=== PATIENT | female | born 1950 | race Caucasian/White ===

== ENCOUNTER 2016-06-11 08:45 | Day surgery (SDC) | payer MEDICARE, BC ==
[~2016-06-11 08:45] MED LIST: Lactated Ringers 1,000 ML IV SCH; Sodium Chloride 0.9% 10 ML Syringe FLUSH PRN
--- NOTE | 2016-06-11 09:48 | PCM.HPR ---
H & P Addendum review - H & P Addendum Review Date of Original H & P: 05/29/16 Date Reviewed: 06/11/16 Time Reviewed: 09:48 Patient was examined: No Changes (Ok to proceed with EGD and Colonoscopy)
[2016-06-11] MEDS ORDERED: fentaNYL 100 MCG/2 ML SDV ONE ×2 (09:49→10:25)
[2016-06-11] MEDS ORDERED: Midazolam 1 MG/ML 2 ML SDV ONE ×2 (09:49→10:25)
[2016-06-11] MEDS ORDERED: Propofol 200 MG/20 ML SDV ONE ×2 (09:49→10:25)
--- NOTE | 2016-06-11 10:26 | PCM.OPNOTE ---
- General Post-Op/Procedure Note Date of Surgery/Procedure: 06/11/16 Operative Procedure(s): EGD with Bx. Colonoscopy Findings: Burt's and HH Pre Op Diagnosis: Burt's. Screening colon Post-Op Diagnosis: Same Anesthesia Technique: MAC Primary Surgeon: Shaun English Anesthesia Provider: Latonia Rush Pathology: Distal Esoph Bx EBL in mLs: 0 Complications: None Condition: Good
--- NOTE | 2016-06-11 11:39 | OR ---
Date of Procedure: 06/11/2016 PREOPERATIVE DIAGNOSES: 1. History of Burt's esophagus. 2. Colon screening. POSTOPERATIVE DIAGNOSES: 1. Burt's esophagus. 2. Hiatal hernia. 3. Normal colonoscopy. PROCEDURE: 1. EGD with biopsies. 2. Colonoscopy. ANESTHESIA: IV sedation. DESCRIPTION OF PROCEDURE: The patient was brought to the procedure room, where an anesthetic gargle was given and IV sedation administered. Oral bite-block was placed and the upper endoscope advanced into the esophagus under direct vision without difficulty. Scope was advanced to the third portion of the duodenum. Duodenum and pylorus were normal. Antrum and body of the stomach were normal. Retroflexion reveals a small hiatal hernia, this measures approximately 2 cm in length. The squamocolumnar junction is irregular with columns of Burt's esophagus present. Photographs were taken, I do not see any concerning findings. Biopsies were taken from each quadrant. Air was removed from the stomach and the scope withdrawn through the remaining esophagus which appears normal. Vocal cords were viewed and were normal. The patient tolerated this portion of the procedure well. Next, colonoscopy was performed after digital rectal exam was performed which was normal. Colonoscope was inserted and advanced to the level of the cecum without difficulty. Cecal position was confirmed by identifying the appendiceal lumen and the ileocecal valve. Prep was good and surfaces were well visualized. Upon withdrawing the scope, the ascending, transverse, and descending colon were normal in appearance. Sigmoid colon and rectum were normal. Retroflexion was normal. Air was removed and the scope withdrawn. The patient tolerated the procedure well and returned to recovery in stable condition. I will contact the patient with the pathology report when it returns. Assuming no concerning changes are present, she should consider repeat upper endoscopy again in three years. She is average risk for her colon and could wait for 10 years until her next colon screening. SHAYNE CAMPOS MD /[id number]
[2016-06-11 13:52] VITALS: BP 116/50
== END 2016-06-11 11:39 | disposition home or self-care (01) ==
LOC: LL.SDS 08:45
PROVIDERS: ATTEND Surgery
DX: Z12.11 Encounter for screening for malignant neoplasm of colon (principal); B33.20 Viral carditis, unspecified; K44.9 Diaphragmatic hernia without obstruction or gangrene; I10 Essential (primary) hypertension; Z79.82 Long term (current) use of aspirin; Z79.899 Other long term (current) drug therapy; Z79.2 Long term (current) use of antibiotics; K21.9 Gastro-esophageal reflux disease without esophagitis; E78.5 Hyperlipidemia, unspecified; Z98.890 Other specified postprocedural states; Z94.81 Bone marrow transplant status
CPT/HCPCS: 00740; 43239; G0121; J2250; J2704; J3010; J7120; 88305

== ENCOUNTER 2019-11-16 07:50 | Day surgery (SDC) | payer MEDICARE, BC ==
[2019-11-16] MEDS ORDERED: Lactated Ringers 1,000 ML IV SCH (08:00)
[2019-11-16] MEDS ORDERED: Sodium Chloride 0.9% 10 ML Syringe FLUSH PRN (08:00)
[2019-11-16] MEDS ORDERED: Propofol 200 MG/20 ML SDV ONE ×2 (08:35→09:27)
[2019-11-16] MEDS ORDERED: Midazolam 1 MG/ML 2 ML SDV ONE ×2 (08:35→09:27)
--- NOTE | 2019-11-16 09:10 | PCM.PN ---
- General Info Date of Service: 11/16/19 - Review of Systems Systems Review Comment:: 69-year-old female with history of Burt's esophagus here for surveillance upper endoscopy. She states that she has been taking omeprazole regularly. She denies any recent symptoms of heartburn or dysphasia. She is medically stable to proceed today. Her recent history and physical is reviewed and no significant changes are noted. I have discussed the proposed upper endoscopy with the patient. She agrees to proceed excepting risks. - Patient Data Vitals - Most Recent: Last Vital Signs Temp 97.8 F 11/16/19 08:02 Pulse 50 L 11/16/19 08:02 Resp 16 11/16/19 08:02 BP 138/74 11/16/19 08:02 Pulse Ox 97 11/16/19 08:02 Weight - Most Recent: 86.183 kg Med Orders - Current: Current Medications Lactated Ringer's (Ringers, Lactated) 1,000 mls @ 125 mls/hr IV ASDIRECTED PAULO Last Admin: 11/16/19 08:19 Dose: 125 mls/hr Documented by: Sodium Chloride (Saline Flush) 10 ml FLUSH ASDIRECTED PRN PRN Reason: Keep Vein Open Discontinued Medications Midazolam HCl (Versed 1 Mg/Ml) Confirm Administered Dose 2 mg .ROUTE .STK-MED ONE Stop: 11/16/19 08:36 Propofol (Diprivan 20 Ml) Confirm Administered Dose 200 mg .ROUTE .STK-MED ONE Stop: 11/16/19 08:36 Sepsis Event Note - Focused Exam Vital Signs: Vital Signs Temp Pulse Resp BP Pulse Ox 11/16/19 08:02 97.8 F 50 L 16 138/74 97 - Problem List Review Problem List Initiated/Reviewed/Updated: Yes - My Orders Last 24 Hours: My Active Orders 11/16/19 08:00 Patient Status [ADT] Routine Peripheral IV Care [RC] . DIRECTED Verify Patient Consent Obtain [RC] ASDIRECTED Lactated Ringers [Ringers, Lactated] 1,000 ml IV ASDIRECTED Sodium Chloride 0.9% [Saline Flush] 10 ml FLUSH ASDIRECTED PRN Peripheral IV Insertion Adult [OM.PC] Routine - Assessment Assessment:: History of Burt's esophagus - Plan Plan:: EGD
--- NOTE | 2019-11-16 09:30 | PCM.OPNOTE ---
- General Post-Op/Procedure Note Date of Surgery/Procedure: 11/16/19 Operative Procedure(s): EGD with Biopsy Findings: Burt's Esophagus for about 3 cm length. No nodularity or mass Benign appearing gastric polyps Pre Op Diagnosis: Burt's Esophagus Post-Op Diagnosis: Same Anesthesia Technique: MAC Primary Surgeon: Alejandro Medina Pathology: Distal Esophagus biopsies EBL in mLs: 3 Complications: None Condition: Good
--- NOTE | 2019-11-16 10:42 | OR ---
Date of Procedure: 11/16/2019 PREOPERATIVE DIAGNOSIS: Burt's esophagus. POSTOPERATIVE DIAGNOSIS: Burt's esophagus, gastric polyps. OPERATION PERFORMED: Esophagogastroduodenoscopy with biopsy. INDICATIONS FOR SURGERY: This 69-year-old female has a known history of Burt's esophagus. She has been taking her PPI agent regularly. She comes today for surveillance EGD. FINDINGS: In the distal esophagus, the patient has an area of approximately 3 cm in length grossly consistent with Burt's esophagus. This extends from approximately 38 cm from the incisors to 35 cm from the incisors. There is no associated stenosis, nodularity, or mass. The remainder of the esophagus appears normal. The stomach lining does have some benign-appearing polyps, but otherwise, appears normal and the duodenum appears normal as well. DESCRIPTION OF PROCEDURE: The patient was taken to the operating room. She was given intravenous sedation, and with her in the left lateral decubitus position, the Olympus gastroscope was advanced through a mouth guard into the oral cavity. Under direct visualization, the scope was then carefully advanced through the oropharynx, esophagus, stomach, and down into the duodenum, where examination to the third portion was performed. After examining the duodenum, the scope was withdrawn back into the stomach where full examination including retroflexed examination of the fundus was performed. The GE junction and distal esophagus were carefully examined and biopsies of this area were taken at multiple levels in followup of the patient's known Burt's esophagus. After these biopsies had been taken, the scope was withdrawn, and the scope was removed. The patient was then taken from the operating room in satisfactory condition. ESTIMATED BLOOD LOSS: 3 mL. COMPLICATIONS: None. PROGNOSIS: Good. SHAYNE Medina MD /[id number] MTDD
[2019-11-16 13:32] VITALS: BP 126/59; PULSE 58
== END 2019-11-16 10:52 | disposition home or self-care (01) ==
LOC: LL.SDS 07:50
PROVIDERS: ATTEND Surgery
DX: K22.70 Barrett's esophagus without dysplasia (principal); E78.00 Pure hypercholesterolemia, unspecified; I12.9 Hypertensive chronic kidney disease with stage 1 through stage 4 chronic kidney disease, or unspecified chronic kidney disease; N18.30 Chronic kidney disease, stage 3 unspecified; K21.9 Gastro-esophageal reflux disease without esophagitis; C90.02 Multiple myeloma in relapse; M85.89 Other specified disorders of bone density and structure, multiple sites; D50.9 Iron deficiency anemia, unspecified; M26.622 Arthralgia of left temporomandibular joint; Z01.812 Encounter for preprocedural laboratory examination; Z79.899 Other long term (current) drug therapy; Z79.82 Long term (current) use of aspirin; Z20.828 Contact with and (suspected) exposure to other viral communicable diseases
CPT/HCPCS: 00731; 43239; 88305; J2001; J2250; J2704; J7120; U0002

== ENCOUNTER 2022-12-17 10:24 | Day surgery (SDC) | payer MEDICARE, BC ==
[~2022-12-17 10:24] MED LIST changes: -Lactated Ringers 1,000 ML IV SCH; +Midazolam 1 MG/ML 2 ML SDV ONE; +Propofol 200 MG/20 ML SDV ONE; -Sodium Chloride 0.9% 10 ML Syringe FLUSH PRN
[2022-12-17] MEDS ORDERED: Sodium Chloride 0.9% 10 ML Syringe FLUSH PRN (10:30)
[2022-12-17] MEDS ORDERED: Lactated Ringers 1,000 ML IV SCH (10:30)
[2022-12-17] MEDS ORDERED: Lidocaine 2% 5 ML SDV ONE (11:35)
[2022-12-17 12:41] VITALS: BP 166/92; PULSE 57
== END 2022-12-17 12:35 | disposition home or self-care (01) ==
LOC: LL.SDS 10:24
PROVIDERS: ATTEND Surgery
DX: K22.70 Barrett's esophagus without dysplasia (principal); K31.89 Other diseases of stomach and duodenum; K29.70 Gastritis, unspecified, without bleeding; K25.9 Gastric ulcer, unspecified as acute or chronic, without hemorrhage or perforation; D61.9 Aplastic anemia, unspecified; L40.9 Psoriasis, unspecified; E79.0 Hyperuricemia without signs of inflammatory arthritis and tophaceous disease; L57.0 Actinic keratosis; R73.03 Prediabetes; I10 Essential (primary) hypertension; M85.80 Other specified disorders of bone density and structure, unspecified site; C90.02 Multiple myeloma in relapse; E78.00 Pure hypercholesterolemia, unspecified; M20.42 Other hammer toe(s) (acquired), left foot; Z79.899 Other long term (current) drug therapy
CPT/HCPCS: 00731; J2250; J2704; J3490; J7120

== ENCOUNTER 2024-06-04 19:10 | Observation (INO) | payer MEDICARE, BC ==
[2024-06-04 19:53] LABS: BASOPHILS ABSOLUTE AUTO 0.01 K/uL (0.00-0.20); BASOPHILS PERCENT AUTO 0.3 % (0.0-2.0); EOSINOPHILS ABSOLUTE AUTO 0.02 K/uL (0.00-0.50); EOSINOPHILS PERCENT AUTO 0.7 % (0.0-5.0); HEMATOCRIT 40.3 % (34.0-46.0); HEMOGLOBIN 13.1 g/dL (11.7-15.5); IMMATURE GRAN ABSOLUTE AUTO 0.01 10^3/uL (0.00-0.04); IMMATURE GRAN PERCENT AUTO 0.3 % (0.0-0.4); LYMPHOCYTES ABSOLUTE AUTO 0.59 K/uL (0.50-3.50); LYMPHOCYTES PERCENT AUTO 19.5 % (10.0-50.0); MEAN CORPUSCULAR HEMOGLOBIN 28.1 pg (28.2-33.3); MEAN CORPUSCULAR HGB CONC 32.5 g/dL (31.7-36.0); MEAN CORPUSCULAR VOLUME 86.5 fL (84.0-98.0); MONOCYTES ABSOLUTE AUTO 0.25 K/uL (0.00-1.00); MONOCYTES PERCENT AUTO 8.3 % (2.0-14.0); NEUTROPHILS ABSOLUTE AUTO 2.14 K/uL (1.40-7.00); NEUTROPHILS PERCENT AUTO 70.9 % (45.0-80.0); PLATELET COUNT,PLT 113 K/uL (150-350); RED BLOOD CELL COUNT 4.66 M/uL (3.77-5.09); RED CELL DISTRIBUTION WIDTH 13.2 % (11.2-14.1)
[2024-06-04 20:05] LABS: ALANINE AMINOTRANSFERASE,ALT 151 U/L (12-78); ALBUMIN 3.2 g/dL (3.4-5.0); ALKALINE PHOSPHATASE 144 IU/L (46-116); ASPARTATE AMNIOTRANSFERASE,AST 181 U/L (15-37); BILIRUBIN TOTAL 0.5 mg/dL (0.2-1.0); BLOOD UREA NITROGEN,BUN 10 mg/dL (7-18); CALCIUM 8.4 mg/dL (8.5-10.1); CARBON DIOXIDE,CO2 27.5 mmol/L (21.0-32.0); CHLORIDE,CL 100 mmol/L (98-107); CREATININE 0.82 mg/dL (0.51-1.17); GLUCOSE RANDOM 112 mg/dL (70-99); MAGNESIUM 1.9 mg/dL (1.8-2.4); POTASSIUM,K 3.7 mmol/L (3.5-5.1); PROTEIN TOTAL,TP 6.6 g/dL (6.4-8.2); SODIUM,NA 135 mmol/L (136-145)
[2024-06-04 20:14] LABS: ANION GAP 11.2 meq/L (7-15); ESTIMATED GFR 75 mL/min (>=60)
[2024-06-04 20:32] LABS: APPEARANCE,URINE SLIGHTLY CLOUDY; BILIRUBIN,URINE SMALL (NEGATIVE); COLOR,URINE YELLOW; GLUCOSE,URINE NEGATIVE (NEGATIVE); KETONES,URINE 40 mg/dL (NEGATIVE); LEUKOCYTE ESTERASE,URINE NEGATIVE (NEGATIVE); NITRITE,URINE NEGATIVE (NEGATIVE); OCCULT BLOOD,URINE TRACE-LYSED (NEGATIVE); PROTEIN,URINE >=300 mg/dL (NEGATIVE); UROBILINOGEN,URINE 0.2 E.U./dL (0.2-1.0)
[2024-06-04] MEDS ORDERED: Naloxone 0.4 MG/ML SDV IVPUSH PRN (20:33)
[2024-06-04] MEDS: Ondansetron 4 MG/2 ML SDV IVPUSH ONE (20:49)
[2024-06-04] MEDS: Ondansetron 4 MG Tab.DIS PO ONE (20:50)
[2024-06-04] MEDS: Sodium Chloride 0.9% 1,000 ML IV ONE (20:50)
[2024-06-04] MEDS: Metoprolol Tartrate 25 MG Tab PO ONE (20:50)
[2024-06-04] MEDS: fentaNYL 50 MCG/ML SDV IVPUSH ONE ×2 (20:50→22:02)
[2024-06-04] MEDS: Sodium Chloride 0.9% 10 ML Syringe FLUSH PRN (20:52)
[2024-06-04 20:59] LABS: BACTERIA,URINE NOT SEEN /HPF (NONE TO FEW); EPITHELIAL CELLS,URINE MODERATE /LPF; MUCUS,URINE MODERATE /LPF (NEGATIVE); WBC,URINE 0-5 /HPF
[2024-06-04] MEDS: Iopamidol 612 MG/ML 100 ML Bottle IVPUSH STA (21:00)
[2024-06-04] MEDS: Acetaminophen 325 MG Tab PO ONE (21:27)
[2024-06-04] MEDS: Sodium Chloride 0.9% 1,000 ML IV SCH (22:04)
[2024-06-04 22:23] LABS: AMYLASE 25 U/L (25-115); LIPASE 38 U/L (16-77)
[2024-06-04] MEDS: Morphine 4 MG/ML Syringe IVPUSH ONE (23:02)
[2024-06-04] MEDS ORDERED: Morphine 2 MG/ML SYRINGE IVPUSH PRN (23:24)
[2024-06-04] MEDS: Pantoprazole 40 MG in Sodium Chloride 0.9% 100 ML IV ONE (23:51)
[2024-06-04] MEDS: Dicyclomine 20 MG Tab ONE (23:59)
[2024-06-05] MEDS: oxyCODONE 5 MG Tab PO PRN (04:33)
[2024-06-05] MEDS: Acetaminophen 325 MG Tab PO PRN (05:17)
[2024-06-05] MEDS: Ondansetron 4 MG/2 ML SDV IVPUSH PRN (05:18)
[2024-06-05] MEDS: Dicyclomine 20 MG Tab PO SCH (05:30)
[2024-06-05] MEDS ORDERED: Dicyclomine 20 MG Tab PO SCH (07:30)
[2024-06-05] MEDS: Rosuvastatin 10 MG Tab PO SCH (08:05)
[2024-06-05] MEDS: Magnesium Chloride 64 MG Tab.ER PO SCH (08:07)
[2024-06-05] MEDS: Furosemide 20 MG Tab PO SCH (08:08)
[2024-06-05] MEDS: amLODIPine 5 MG Tab PO SCH (08:08)
[2024-06-05] MEDS: Lisinopril 10 MG Tab PO SCH (08:08)
[2024-06-05] MEDS: Pantoprazole 40 MG Vial IVPUSH ONE (09:51)
[2024-06-05 10:45] LABS: ALBUMIN 2.7 g/dL (3.4-5.0); BILIRUBIN TOTAL 0.4 mg/dL (0.2-1.0); CALCIUM 7.8 mg/dL (8.5-10.1); CARBON DIOXIDE,CO2 27.4 mmol/L (21.0-32.0); CREATININE 0.75 mg/dL (0.51-1.17); EST CRCL DRUG DOSING (CG) 56.83 mL/min; POTASSIUM,K 3.4 mmol/L (3.5-5.1); PROTEIN TOTAL,TP 5.8 g/dL (6.4-8.2)
[2024-06-05 11:23] LABS: BASOPHILS ABSOLUTE AUTO 0.01 K/uL (0.00-0.20); BASOPHILS PERCENT AUTO 0.3 % (0.0-2.0); EOSINOPHILS ABSOLUTE AUTO 0.04 K/uL (0.00-0.50); EOSINOPHILS PERCENT AUTO 1.3 % (0.0-5.0); HEMATOCRIT 35.5 % (34.0-46.0); HEMOGLOBIN 11.5 g/dL (11.7-15.5); LYMPHOCYTES ABSOLUTE AUTO 0.87 K/uL (0.50-3.50); LYMPHOCYTES PERCENT AUTO 29.1 % (10.0-50.0); MEAN CORPUSCULAR HEMOGLOBIN 28.4 pg (28.2-33.3); MEAN CORPUSCULAR HGB CONC 32.4 g/dL (31.7-36.0); MEAN CORPUSCULAR VOLUME 87.7 fL (84.0-98.0); MONOCYTES ABSOLUTE AUTO 0.36 K/uL (0.00-1.00); NEUTROPHILS ABSOLUTE AUTO 1.71 K/uL (1.40-7.00); NEUTROPHILS PERCENT AUTO 57.3 % (45.0-80.0); PLATELET COUNT,PLT 85 K/uL (150-350); RED BLOOD CELL COUNT 4.05 M/uL (3.77-5.09); RED CELL DISTRIBUTION WIDTH 13.5 % (11.2-14.1)
[2024-06-05] MEDS: diphenhydrAMINE 25 MG Cap PO ONE (11:51)
[2024-06-05] MEDS ORDERED: HYDROmorphone 0.5 MG/0.5 ML Syringe IVPUSH ONE (15:47)
[2024-06-05] MEDS: traMADol 50 MG Tab PO PRN (16:03)
[2024-06-05] MEDS: Enoxaparin 40 MG/0.4 ML Syringe SUBCUT SCH (16:41)
[2024-06-05] MEDS: Ketorolac 15 MG/ML SDV IVPUSH PRN (16:57)
[2024-06-05] MEDS: Aluminum Hydroxide/Magnesium Hydroxide/Simethicone Susp 30 ML Cup PO ONE (17:27)
[2024-06-05] MEDS: Lidocaine 2% Viscous Solution 15 ML UD PO ONE (17:28)
[2024-06-05] MEDS ORDERED: diphenhydrAMINE 25 MG Cap PO PRN (18:00)
[2024-06-05] MEDS: Sodium Chloride 0.9% 1,000 ML IV SCH (19:30)
[2024-06-06] MEDS: Lidocaine 2% Viscous Solution 15 ML UD PO PRN (01:52)
[2024-06-06] MEDS: Aluminum Hydroxide/Magnesium Hydroxide/Simethicone Susp 30 ML Cup PO PRN (01:52)
[2024-06-06 01:56] VITALS: BP 157/77; PULSE 58
[2024-06-06] MEDS: fentaNYL 50 MCG/ML SDV IVPUSH PRN (04:38)
[2024-06-06] MEDS: Pantoprazole 40 MG Vial IVPUSH ONE (05:01)
[2024-06-07 23:46] LABS: HAV AB IGM Negative (Negative); HBC IGM Negative (Negative); HEP B SURG AG Negative (Negative); HEP C AB BY CIA Negative (Negative); HEP C AB BY CIA INDEX 0.03 IV
== END 2024-06-06 04:45 ==
LOC: LL.ED 19:10 → LL.MS 23:10
PROVIDERS: ADMIT Emergency Medicine; ATTEND Emergency Medicine
DX: R10.84 Generalized abdominal pain (principal); R19.7 Diarrhea, unspecified; R11.10 Vomiting, unspecified; I10 Essential (primary) hypertension; E78.00 Pure hypercholesterolemia, unspecified; K21.9 Gastro-esophageal reflux disease without esophagitis; Z79.899 Other long term (current) drug therapy
CPT/HCPCS: 36415; 74177; 76705; 80053; 80074; 81001; 82150; 83605; 83690; 83735; 85025; 87428-QW; 96361; 96374; 96375; 96376; 99223; 99233; 99239; 99285-25; A9270-GY; J1650; J1885; J2270; J2405; J2470; J3010; J7030; Q9967